=== PATIENT | male | born 1950 | race African-American/Black ===

== ENCOUNTER 2017-07-03 09:57 | Observation (INO) ==
--- NOTE | 2017-07-03 10:06 | Emergency Department Note ---
Disposition Clinical Impression: Chest pain Disposition: Admitted As Inpatient Condition: Fair [facility] Care Provider[facility] - Time of Disposition: 12:10 Chest Pain HPI - General Stated Complaint: CP x3days Time Seen by Provider: 07/03/17 10:01 Vital Signs Reviewed: Yes Nursing Notes Reviewed: Yes - History of Present Illness HPI Narrative: Patient is a 67-year-old male with a past medical history of hypertension, neuropathy, enlarged prostate that presents for left sided chest pain. Patient says chest pain has been constant and have been occurring for the past 3-4 days. He rates the pain as a 5 out of 10 and denies any radiation. He denies anything that can relieve his pain. He says it can occur at rest or with exertion. He says that he has been short of breath with exertion and at rest for the past 3-4 days. He denies any aspirin use in the past 7 days. He has a history of 40 pack years of smoking. He denies any family history of disease. Denies any issues of hypercholesterolemia. - Related Data Home Medications Medication Instructions Recorded Confirmed Albuterol Sulfate [Albuterol 2 puff IH QID PRN 01/03/16 01/03/16 Inhaler] Dextran 70/Hypromellose [Natural 1 drop BOTH EYES QID 01/03/16 01/03/16 Balance Tears Eye Drop] Lisinopril [Zestril] 10 mg PO DAILY 01/03/16 01/03/16 Tamsulosin [Flomax] 0.4 mg PO DAILY 01/03/16 01/03/16 Allergies Allergy/AdvReac Type Severity Reaction Status Date / Time No Known Allergies Allergy Verified 07/03/17 12:04 Review of Systems: As Per HPI Constitutional: Denies: fever, chills, weakness, weight change Cardiovascular: Reports: chest pain (Left sided chest pain) Respiratory: Reports: dyspnea. Denies: cough, wheezes, hemoptysis, stridor, sputum production Gastrointestinal: Denies: abdominal pain, nausea, vomiting, diarrhea, constipation, hematemesis, melena, hematochezia Chest Pain PMH - Past Medical History Medical history: Reports: diabetes, hypertension, kidney stones Surgical history: Reports: no surgical history Psychiatric history: Reports: anxiety, depression - Social History Smoking Status: Current every day smoker Alcohol use: Reports: occasionally Drug use: Reports: cocaine Physical Exam - General Limitations: no limitations General appearance: alert, in no apparent distress - Chest Chest inspection: Present: symmetric chest wall rise, tenderness (Tenderness to palpation) - Respiratory Respiratory exam: Present: normal lung sounds bilaterally - Cardiovascular Cardiovascular exam: Present: regular rate, normal rhythm, normal heart sounds, +S1, +S2. Absent: +S3, +S4 - Abdominal Exam Abdominal exam: Present: soft, Non-Tender, normal bowel sounds. Absent: tenderness, distention, guarding, rebound, rigidity - Extremities Exam Extremities exam: Present: other (Radial pulses symmetrical and intact.) Course Course Narrative: Obtained EKG which showed no acute changes from prior EKG on 01/18/17. No ST elevations noted. No acute ischemic changes noted. Normal sinus rhythm. Patient will be given 325 mg aspirin. Troponin levels will be assessed for ACS. Amylase and lipase will be assessed to r/o pancreatitis. BNP was ordered to r/o CHF. Patient unsure when last stress test was. He has risk factors for ACS including borderline diabetes, history of hypertension, obesity, and the 40-pack -year history of smoking. Last echocardiogram was on 01/03/16 and shows an LVEF of 60-65%. Last nuclear stress test on 01/03/16 was negative for ischemia. Update 07/03/14 1135: Troponin was negative. CXR was normal. Amylase and lipase were within normal limits. BNP was normal. Patient has a HEART score of 5, which is a 12-16.6% risk of adverse cardiac event. Patient will be admitted for further evaluation. Vital Signs Temperature 97.7 F 07/03/17 10:24 Pulse Rate 98 07/03/17 10:24 Respiratory Rate 20 07/03/17 10:24 Blood Pressure 174/105 07/03/17 10:24 O2 Sat by Pulse Oximetry 97 07/03/17 10:24 Temperature 97.7 F 07/03/17 10:24 Pulse Rate 90 07/03/17 10:47 Respiratory Rate 18 07/03/17 10:47 Blood Pressure 127/84 07/03/17 10:47 O2 Sat by Pulse Oximetry 97 07/03/17 10:47 Oxygen Delivery Oxygen Delivery Room Air Chest Pain - Lab Data Result diagrams: 07/03/17 10:18 07/03/17 10:18 Lab Results 04/07/03/17 07/03/17 Range/Units 10:18 10:18 10:18 WBC 6.5 (4.3-11.1) K/mcL RBC 6.07 H (4.19-5.50) M/mcL Hgb 15.9 (12.9-16.9) g/dL Hct 50.0 (37.5-50.1) % MCV 82.4 L (83.0-100.0) fL MCH 26.2 L (28.0-33.3) pg MCHC 31.8 (31.6-35.5) g/dL RDW 14.6 H (11.5-14.5) % Plt Count 227 (140-400) K/mcL MPV 10.0 (9.4-12.4) fL Immature Gran % 0.8 (0-4) % Seg Neutrophils % 47.1 % Lymphocytes % 40.4 % Monocytes % 9.0 % Eosinophils % 1.5 % Basophils % 1.2 % Neutrophils # 3.1 (1.6-8.9) K/mcL Lymphocytes # 2.6 (0.6-4.6) K/mcL Monocytes # 0.6 (0.0-1.3) K/mcL Eosinophils # 0.1 (0.0-0.6) K/mcL Basophils # 0.1 (0.0-0.2) K/mcL PT 11.2 (9.4-12.1) Seconds INR 1.0 APTT 29.8 (26.0-36.0) Seconds Sodium (136-145) mEq/L Potassium (3.5-5.1) mEq/L Chloride (98-107) mEq/L Carbon Dioxide (23-29) mEq/L BUN (8-23) mg/dL Creatinine (0.70-1.30) mg/dL Est GFR ( Amer) (> 60) Est GFR (Non-Af Amer) (> 60) BUN/Creatinine Ratio (6-26) Glucose (70-105) mg/dL Calculated Osmolality (280-300) Calcium (8.6-10.3) mg/dL Troponin I (< 0.04) ng/mL B-Natriuretic Peptide 8 (Less than 100) pg/mL Amylase (29-103) Units/L Lipase (11-82) Units/L 07/03/17 Range/Units 10:18 WBC (4.3-11.1) K/mcL RBC (4.19-5.50) M/mcL Hgb (12.9-16.9) g/dL Hct (37.5-50.1) % MCV (83.0-100.0) fL MCH (28.0-33.3) pg MCHC (31.6-35.5) g/dL RDW (11.5-14.5) % Plt Count (140-400) K/mcL MPV (9.4-12.4) fL Immature Gran % (0-4) % Seg Neutrophils % % Lymphocytes % % Monocytes % % Eosinophils % % Basophils % % Neutrophils # (1.6-8.9) K/mcL Lymphocytes # (0.6-4.6) K/mcL Monocytes # (0.0-1.3) K/mcL Eosinophils # (0.0-0.6) K/mcL Basophils # (0.0-0.2) K/mcL PT (9.4-12.1) Seconds INR APTT (26.0-36.0) Seconds Sodium 140 (136-145) mEq/L Potassium 4.3 (3.5-5.1) mEq/L Chloride 108 H (98-107) mEq/L Carbon Dioxide 23 (23-29) mEq/L BUN 15 (8-23) mg/dL Creatinine 1.16 (0.70-1.30) mg/dL Est GFR ( Amer) > 60 (> 60) Est GFR (Non-Af Amer) > 60 (> 60) BUN/Creatinine Ratio 13 (6-26) Glucose 112 H (70-105) mg/dL Calculated Osmolality 292 (280-300) Calcium 9.5 (8.6-10.3) mg/dL Troponin I < 0.03 (< 0.04) ng/mL B-Natriuretic Peptide (Less than 100) pg/mL Amylase 49 (29-103) Units/L Lipase 43 (11-82) Units/L - EKG Data EKG attestation: Yes I reviewed and interpreted this EKG. EKG shows normal: sinus rhythm Rate: normal Rhythm: NSR Organ/QRS: normal Interpretation: no acute changes, unchanged when compared to prior tracing (date ) (01/18/17) Heart Score - Score History: Moderately Suspicious EKG: Normal Age: Greater than 65 Risk Factors: Equal/Greater than 3 risk factor or history of atherosclerotic disease Troponin: Less than normal limit HEART Score Total: 5
[2017-07-03] MEDS ORDERED: Aspirin 81 MG TAB.CHEW PO ONE (10:28)
--- NOTE | 2017-07-03 10:36 | Emergency Department Note ---
Disposition Clinical Impression: Chest pain Qualifiers: Chest pain type: unspecified Qualified Code(s): R07.9 - Chest pain, unspecified Disposition: Admitted As Inpatient Condition: Fair [facility]: [facility]Primary Care Provider[facility] - Time of Disposition: 12:23 General Adult HPI - General Chief complaint: ED Chest Pain Stated complaint: CP x3days Time Seen by Provider: 07/03/17 10:01 Source: patient, EMS Mode of arrival: EMS Limitations: no limitations Nursing Notes Reviewed: Yes Vital Signs Reviewed: Yes - History of Present Illness HPI Narrative: 67-year-old male comes in complaining of intermittent chest pain. She has been having chest pain off and on for last 3 days. States he had some pain medication changes at the MD and was insurances related to that. He presents now for evaluation. 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[employer] Location: chest Radiation: non-radiation Pain Severity: moderate Pain Scale: 5 Quality: aching Consistency: intermittent Improves with: nothing Worsens with: nothing Associated symptoms: Reports: denies other symptoms Treatments Prior to Arrival: none - Related Data Home Medications Medication Instructions Recorded Confirmed Tamsulosin [Flomax] 0.8 mg PO HS 01/03/16 07/03/17 Cholecalciferol (Vitamin D3) 1,000 unit PO DAILY 07/03/17 07/03/17 [Vitamin D] Lisinopril [Zestril] 20 mg PO DAILY 07/03/17 07/03/17 Melatonin [Melatin] 12 mg PO HS PRN 07/03/17 07/03/17 Nortriptyline [Pamelor] 25 mg PO HS 07/03/17 07/03/17 Ropinirole HCl [Requip] 0.5 mg PO HS 07/03/17 07/03/17 amLODIPine [Norvasc] 5 mg PO DAILY 07/03/17 07/03/17 Allergies Allergy/AdvReac Type Severity Reaction Status Date / Time No Known Allergies Allergy Verified 07/03/17 12:04 All systems ED: reviewed and negative except as stated. Constitutional: Denies: fever, chills, weakness, weight change Eyes: Denies: eye pain, eye discharge, vision change ENT ED: Denies: ear pain, throat pain, dental pain, hearing loss, epistaxis, congestion, dysphagia Cardiovascular: Reports: chest pain. Denies: palpitations, dyspnea on exertion , edema, syncope Respiratory: Denies: cough, dyspnea, wheezes, hemoptysis, stridor Gastrointestinal: Denies: abdominal pain, nausea, vomiting, diarrhea, constipation, hematemesis, melena, hematochezia Genitourinary: Denies: urgency, dysuria, frequency, hematuria Musculoskeletal: Denies: back pain, neck pain, arthralgia, myalgia Integumentary: Denies: rash, abrasion, lesions Neurological: Denies: headache, weakness, numbness, paresthesias, confusion, abnormal gait, vertigo Psychiatric: Denies: anxiety, depression, suicidal thoughts, homicidal thoughts , auditory hallucinations, visual hallucinations Endocrine: Denies: fatigue Hematological/Lymphatic: Denies: easy bleeding, easy bruising Allergic/Immunologic: Denies: facial swelling, urticaria Past Medical History - Past Medical History Medical history: Reports: diabetes, hypertension, kidney stones Surgical history: Reports: no surgical history Psychiatric history: Reports: anxiety, depression - Social History Smoking Status: Current every day smoker Smokeless Tobacco Status: No Alcohol use: Reports: occasionally Drug use: Reports: cocaine Physical Exam - General General appearance: alert, in no apparent distress - Head Head exam: atraumatic, normocephalic, normal inspection - Eye Eye exam: Present: normal appearance, PERRL, EOMI - ENT ENT exam: normal exam, normal oropharynx, mucous membranes moist - Neck Neck exam: Present: normal inspection, full ROM, trachea midline - Chest Chest inspection: Present: normal inspection, symmetric chest wall rise - Respiratory Respiratory exam: Present: normal lung sounds bilaterally - Cardiovascular Cardiovascular exam: Present: regular rate, normal rhythm, normal heart sounds - Abdominal Exam Abdominal exam: Present: soft, Non-Tender. Absent: tenderness, distention, guarding, rebound, rigidity - Extremities Exam Extremities exam: Present: normal inspection, full ROM. Absent: tenderness, pedal edema - Expanded Lower Extremity Exam Neurovascular/Tendon exam: Absent: motor deficit, sensory deficit, tendon deficit Gait: observed and normal - Back Exam Back exam: Present: normal inspection, full ROM. Absent: tenderness - Neurological Exam Neurological exam: Present: alert, oriented X3 - Psychiatric Psychiatric exam: Present: normal affect, normal mood - Skin Skin exam: Present: warm, dry, intact, normal color Course - Reevaluation(s) Reevaluation #1: 67-year-old with no cardiac history comes in with intermittent chest pain. Patient will be admitted for further evaluation and treatment. Time: 12:23 - Consultations Consultation #1: Discussed with , admit Time: 12:27 Vital Signs Temperature 97.7 F 07/03/17 10:24 Pulse Rate 98 07/03/17 10:24 Respiratory Rate 20 07/03/17 10:24 Blood Pressure 174/105 07/03/17 10:24 O2 Sat by Pulse Oximetry 97 07/03/17 10:24 Temperature 97.7 F 07/03/17 10:24 Pulse Rate 90 07/03/17 10:47 Respiratory Rate 18 07/03/17 10:47 Blood Pressure 127/84 07/03/17 10:47 O2 Sat by Pulse Oximetry 97 07/03/17 10:47 Oxygen Delivery Oxygen Delivery Room Air Medical Decision Making - Lab Data Lab results reviewed: Yes I reviewed the patient's lab results. Result diagrams: 07/03/17 10:18 07/03/17 10:18 Lab Results 07/03/17 07/03/17 07/03/17 Range/Units 10:18 10:18 10:18 WBC 6.5 (4.3-11.1) K/mcL RBC 6.07 H (4.19-5.50) M/mcL Hgb 15.9 (12.9-16.9) g/dL Hct 50.0 (37.5-50.1) % MCV 82.4 L (83.0-100.0) fL MCH 26.2 L (28.0-33.3) pg MCHC 31.8 (31.6-35.5) g/dL RDW 14.6 H (11.5-14.5) % Plt Count 227 (140-400) K/mcL MPV 10.0 (9.4-12.4) fL Immature Gran % 0.8 (0-4) % Seg Neutrophils % 47.1 % Lymphocytes % 40.4 % Monocytes % 9.0 % Eosinophils % 1.5 % Basophils % 1.2 % Neutrophils # 3.1 (1.6-8.9) K/mcL Lymphocytes # 2.6 (0.6-4.6) K/mcL Monocytes # 0.6 (0.0-1.3) K/mcL Eosinophils # 0.1 (0.0-0.6) K/mcL Basophils # 0.1 (0.0-0.2) K/mcL PT 11.2 (9.4-12.1) Seconds INR 1.0 APTT 29.8 (26.0-36.0) Seconds Sodium (136-145) mEq/L Potassium (3.5-5.1) mEq/L Chloride (98-107) mEq/L Carbon Dioxide (23-29) mEq/L BUN (8-23) mg/dL Creatinine (0.70-1.30) mg/dL Est GFR ( Amer) (> 60) Est GFR (Non-Af Amer) (> 60) BUN/Creatinine Ratio (6-26) Glucose (70-105) mg/dL Calculated Osmolality (280-300) Calcium (8.6-10.3) mg/dL Troponin I (< 0.04) ng/mL B-Natriuretic Peptide 8 (Less than 100) pg/mL Amylase (29-103) Units/L Lipase (11-82) Units/L 04/20/18 Range/Units 10:18 WBC (4.3-11.1) K/mcL RBC (4.19-5.50) M/mcL Hgb (12.9-16.9) g/dL Hct (37.5-50.1) % MCV (83.0-100.0) fL MCH (28.0-33.3) pg MCHC (31.6-35.5) g/dL RDW (11.5-14.5) % Plt Count (140-400) K/mcL MPV (9.4-12.4) fL Immature Gran % (0-4) % Seg Neutrophils % % Lymphocytes % % Monocytes % % Eosinophils % % Basophils % % Neutrophils # (1.6-8.9) K/mcL Lymphocytes # (0.6-4.6) K/mcL Monocytes # (0.0-1.3) K/mcL Eosinophils # (0.0-0.6) K/mcL Basophils # (0.0-0.2) K/mcL PT (9.4-12.1) Seconds INR APTT (26.0-36.0) Seconds Sodium 140 (136-145) mEq/L Potassium 4.3 (3.5-5.1) mEq/L Chloride 108 H (98-107) mEq/L Carbon Dioxide 23 (23-29) mEq/L BUN 15 (8-23) mg/dL Creatinine 1.16 (0.70-1.30) mg/dL Est GFR ( Amer) > 60 (> 60) Est GFR (Non-Af Amer) > 60 (> 60) BUN/Creatinine Ratio 13 (6-26) Glucose 112 H (70-105) mg/dL Calculated Osmolality 292 (280-300) Calcium 9.5 (8.6-10.3) mg/dL Troponin I < 0.03 (< 0.04) ng/mL B-Natriuretic Peptide (Less than 100) pg/mL Amylase 49 (29-103) Units/L Lipase 43 (11-82) Units/L - Radiology Data Radiology results reviewed: Yes I reviewed the patient's radiology results. Chest X-Ray 07/03/17 10:28 IMPRESSION: No acute cardiopulmonary process identified. D/ / Danyel Isaac MD / Danyel Isaac MD Interpreting Provider: Danyel sIaac MD - EKG Data EKG #1 EKG attestation: Yes I reviewed and interpreted this EKG. EKG shows normal: sinus rhythm Rate: normal Rhythm: NSR [place]/QRS: normal Interpretation: nonspecific ST-T wave changes Attestation Statement - Attestation Attestation: I examined this patient and my medical decision-making was reviewed with the Resident Physician. I agree with the documented findings, disposition and treatment plan as described except to the extent set forth below. I had face-to -face time with the patient. 67-year-old male with multiple risk factors including hypertension, family history, high cholesterol who has had intermittent chest pain. Examination lungs are clear cardiovascular regular rate and rhythm. EKG was obtained that shows no acute findings. We will obtain lab work patient will require admission for further evaluation and treatment.
[2017-07-03 10:42] LABS: Basophils # 0.1 K/mcL (0.0-0.2); Basophils % 1.2 %; Eosinophils # 0.1 K/mcL (0.0-0.6); Eosinophils % 1.5 %; Hemoglobin 15.9 g/dL (12.9-16.9); Immature Granulocytes % 0.8 % (0-4); Lymphocytes # 2.6 K/mcL (0.6-4.6); Lymphocytes % 40.4 %; Mean Corpuscular HGB Conc 31.8 g/dL (31.6-35.5); Mean Corpuscular Hemoglobin 26.2 pg (28.0-33.3); Mean Corpuscular Volume 82.4 fL (83.0-100.0); Monocytes # 0.6 K/mcL (0.0-1.3); Neutrophils # 3.1 K/mcL (1.6-8.9); Platelet Count 227 K/mcL (140-400); Red Blood Count 6.07 M/mcL (4.19-5.50); Red Cell Distribution Width 14.6 % (11.5-14.5); Segmented Neutrophils % 47.1 %
[2017-07-03 10:55] LABS: Prothrombin Time 11.2 Seconds (9.4-12.1)
[2017-07-03 10:57] LABS: Activated Partial Thrombo Time 29.8 Seconds (26.0-36.0)
[2017-07-03 11:07] LABS: Amylase 49 Units/L (29-103); BUN/Creatinine Ratio 13 (6-26); Blood Urea Nitrogen 15 mg/dL (8-23); Calcium 9.5 mg/dL (8.6-10.3); Carbon Dioxide 23 mEq/L (23-29); Chloride 108 mEq/L (98-107); Glucose 112 mg/dL (70-105); Lipase 43 Units/L (11-82); Osmolality,Calculated 292 (280-300); Potassium 4.3 mEq/L (3.5-5.1); Sodium 140 mEq/L (136-145); Troponin I < 0.03 ng/mL (< 0.04); eGFR For African Americans > 60 (> 60); eGFR For Non-African Americans > 60 (> 60)
--- NOTE | 2017-07-03 13:15 | Internal Med History&Physical ---
Date of Encounter: 07/03/17 Time of Encounter: 13:15 Internal Medicine - H&P: HPI Admitted From: Home Plans for Post Hospital Care: Home History of present illness: Mr. Noe is a 67-year-old male with a past medical history of hypertension, prediabetic but not on medication, chronic a smoker for [id number] and quit years ago but now we have started a few cigarette and a day, cocaine abuser in the past but quit 2 years ago, neuropathy, BPH presents for left sided chest pain that has been intermittent for last 3-4 days. Patient had noticed that pain is start when he tried to eat or drink or smoke severity [id number] and most likely dull nagging, nonradiating and not associated with shortness of breath, diaphoresis, nausea, palpitation and easily resolved with rest. Sometimes chest pain can even occur without any aggravating factor. Patient had cardiac workup echocardiogram with EF 60-65% and a stress test in December 2015 because of chest pain but that time he was cocaine abuser and since after that he quit cocaine. Diabetes runs in the family but denies any cardiac disease. In ER initial troponin negative with no acute finding an EKG. Aspirin full dose 324 mg 1 was given in the ER. ER physician called on-call hospitalists to admit for further cardiac workup. During my interview patient had 1/10 chest pain. Patient denies fever, chills, nausea, vomiting, headache, dizziness, shortness of breath, abdominal pain, urinary or bowel complaint. Past Med Surg Social Fam HX - Past Medical History Medical history: diabetes, hypertension, kidney stones Psychiatric history: anxiety, depression - Past Surgical History Surgical History: no surgical history - Social History Smoking Status: Current every day smoker Smokeless Tobacco Status: No Alcohol use: occasionally Drug use: cocaine - Family History Mother Hx Family Cardiac Disorders: Yes (HTN.) Internal Medicine - H&P: Meds Tamsulosin [Flomax] 0.8 mg PO HS 01/03/16 [History] Cholecalciferol (Vitamin D3) [Vitamin D] 1,000 unit PO DAILY 07/03/17 [History] Lisinopril [Zestril] 20 mg PO DAILY 07/03/17 [History] Melatonin [Melatin] 12 mg PO HS PRN 07/03/17 [History] Nortriptyline [Pamelor] 25 mg PO HS 07/03/17 [History] Ropinirole HCl [Requip] 0.5 mg PO HS 07/03/17 [History] amLODIPine [Norvasc] 5 mg PO DAILY 07/03/17 [History] 3 Allergy/AdvReac Type Severity Reaction Status Date / Time No Known Allergies Allergy Verified 07/03/17 12:04 All Systems PM: A 10-system review of systems was performed and is negative for pertinent findings except as documented above in the HPI. - Constitutional Vitals: Temp Pulse Resp BP Pulse Ox 97.7 F 90 18 127/84 97 07/03/17 10:24 07/03/17 10:47 07/03/17 10:47 07/03/17 10:47 07/03/17 10:47 Exam: General appearance: No acute distress, A&O X 3, obese Head exam: Atraumatic Eye exam: EOMI, PERRLA ENT exam: Moist oral mucosa Neck nontender, supple Respiratory exam: Clear to auscultation bilaterally Cardiovascular exam: Regular rate and rhythm, no systolic murmur Abdominal exam: Soft, nontender, nondistended, positive bowel sounds Extremities exam: No calf tenderness, no pedal edema Present: Skin-no rash, warm, dry, intact Neurological exam: Alert, awake, oriented 3, CN II-XII intact, no focal deficits. No facial droop. Normal speech. Normal gait. Romberg sign negative Internal Med - H&P Results - Labs CBC & Chem 7: 07/03/17 10:18 07/03/17 10:18 - Assessment and plan (1) Chest pain Current Visit: Yes Status: Acute Assessment and plan: Atypical chest pain but has multiple risk factors and therefore need cardiac evaluation. Serial troponin, telemetry, echocardiogram, stress test. Will consult playground monitor if needed. Start aspirin, beta hector, statin, oxygen and nitroglycerin when necessary, TYREE inhibitor. Will consider anticoagulation if rising troponin or change in EKG. Qualifiers: Chest pain type: unspecified Qualified Code(s): R07.9 - Chest pain, unspecified (2) Hypertension Current Visit: No Status: Chronic Assessment and plan: Close monitoring. Continue home medicine. Qualifiers: Hypertension type: essential hypertension Qualified Code(s): I10 - Essential (primary) hypertension (3) Prediabetes Current Visit: No Status: Chronic Assessment and plan: Not on any diabetic medication and does not check blood glucose level at home. (4) Tobacco abuse Current Visit: No Status: Chronic Assessment and plan: Tobacco cessation education. (5) DVT prophylaxis Current Visit: Yes Status: Acute Assessment and plan: Lovenox 40 mg subcutaneous - Time Spent With Patient Total time spent is greater than 50% in coordination of care (as documented) at patient's floor/unit and/or counseling patient:
[2017-07-03 13:31] LABS: Amphetamine Screen,Urine Negative ng/mL (Cutoff=1000); Barbiturate Screen,Urine Negative ng/mL (Cutoff=200); Benzodiazepines Screen,Urine Negative ng/mL (Cutoff=200); Cannabinoid Screen,Urine Negative ng/mL (Cutoff = 50); Cocaine Screen,Urine Negative ng/mL (Cutoff= 300); Opiate Screen,Urine Negative ng/mL (Cutoff=300); Phencyclidine Screen,Urine Negative ng/mL (Cutoff=25)
[2017-07-03] MEDS ORDERED: Naloxone 0.4 MG/ML INJ IVP PRN (14:09)
[2017-07-03] MEDS ORDERED: Nitroglycerin 0.4 MG TAB.SUBL SL PRN (14:09)
[2017-07-03] MEDS ORDERED: Melatonin 3 MG TABLET PO PRN (14:20)
--- NOTE | 2017-07-03 17:17 | Electrocardiograph Report ---
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
[2017-07-03] MEDS ORDERED: rOPINIRole 0.25 MG TABLET PO SCH (21:00)
[2017-07-04 03:27] LABS: Basophils # 0.1 K/mcL (0.0-0.2); Basophils % 1.3 %; Eosinophils # 0.2 K/mcL (0.0-0.6); Eosinophils % 3.1 %; Hematocrit 46.7 % (37.5-50.1); Hemoglobin 14.6 g/dL (12.9-16.9); Immature Granulocytes % 0.7 % (0-4); Lymphocytes # 3.3 K/mcL (0.6-4.6); Lymphocytes % 45.8 %; Mean Corpuscular HGB Conc 31.3 g/dL (31.6-35.5); Mean Corpuscular Hemoglobin 25.8 pg (28.0-33.3); Mean Corpuscular Volume 82.5 fL (83.0-100.0); Mean Platelet Volume 10.4 fL (9.4-12.4); Monocytes # 0.7 K/mcL (0.0-1.3); Monocytes % 9.5 %; Neutrophils # 2.9 K/mcL (1.6-8.9); Platelet Count 210 K/mcL (140-400); Red Blood Count 5.66 M/mcL (4.19-5.50); Red Cell Distribution Width 14.5 % (11.5-14.5); Segmented Neutrophils % 39.6 %
[2017-07-04 03:45] LABS: BUN/Creatinine Ratio 13 (6-26); Blood Urea Nitrogen 15 mg/dL (8-23); Calcium 8.9 mg/dL (8.6-10.3); Carbon Dioxide 24 mEq/L (23-29); Chloride 106 mEq/L (98-107); Cholesterol 162 mg/dL (< 200); Glucose 150 mg/dL (70-105); HDL Cholesterol 27 mg/dL (40-59); LDL Cholesterol,Calculated 104 mg/dL (0-99); Osmolality,Calculated 288 (280-300); Potassium 4.1 mEq/L (3.5-5.1); Sodium 137 mEq/L (136-145); Triglycerides 156 mg/dL (< 150); eGFR For African Americans > 60 (> 60); eGFR For Non-African Americans > 60 (> 60)
[2017-07-04] MEDS ORDERED: *HR* Enoxaparin 40 MG/0.4 ML SYRINGE SQ SCH (06:00)
[2017-07-04] MEDS ORDERED: Regadenoson 0.4 MG/5 ML SYRINGE IVP ONE (07:02)
[2017-07-04] MEDS ORDERED: Lisinopril 20 MG TABLET PO SCH (09:00)
[2017-07-04] MEDS ORDERED: amLODIPine 5 MG TABLET PO SCH (09:00)
[2017-07-04] MEDS ORDERED: Cholecalciferol (D-3) 1,000 UNIT TABLET PO SCH (09:00)
[2017-07-04] MEDS ORDERED: Aspirin 81 MG TAB.CHEW PO SCH (09:00)
[2017-07-04 11:31] VITALS: BP 137/85
--- NOTE | 2017-07-04 13:25 | Discharge Summary ---
Orders not resulted at time of discharge: Pending orders 07/03/17 14:09 NM moise perf SPECT multi [NM] Stat Date of Encounter: 07/04/17 Time of Encounter: 13:22 - Discharge Diagnosis (1) Chest pain Priority: Primary Status: Resolved Qualifiers: Chest pain type: unspecified Qualified Code(s): R07.9 - Chest pain, unspecified (2) Hypertension Priority: Secondary Status: Chronic Qualifiers: Hypertension type: essential hypertension Qualified Code(s): I10 - Essential (primary) hypertension (3) Tobacco abuse Priority: Secondary Status: Chronic (4) Prediabetes Priority: Secondary Status: Chronic (5) Hyperlipidemia Priority: Primary Status: Chronic Qualifiers: Hyperlipidemia type: unspecified Qualified Code(s): E78.5 - Hyperlipidemia , unspecified Hospital course: Mr. 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 He was placed in observation status for ACS rule out. His workup included negative serial troponin, EKG without acute ST changes. Echocardiogram with EF 60% and no wall motion abnormalities. Stress test negative for ischemia or infarct. Chest pain resolved at time of discharge. Chest pain possibly secondary to stress or anxiety as patient has a 6-week-old son and he reported increased stressors at home. Chest pain could also be secondary to gastroenterology etiology as he reports a burning sensation that is relieved when he eats. He also reports the chest pain worsened after he eats. He has never had an EGD or colonoscopy. Omeprazole started at discharge and recommend outpatient GI referral for possible EGD. Patient verbalized understanding. Advised return to ER if chest pain/SOB recurs. Discharge discussed with: patient (Seen and examined at the bedside. Patient is new to me, information obtained the chart review and patient report. Denies chest pain, no shortness of breath. He reports chest pain over the last week with associated burning sensation in the stomach. He also reported chest pain was worse after eating at times. Says he has chronic right leg pain and he had some anxieties/stress related to that and he thinks that may have intermittent chest pain as well. He is agreeable to trial omeprazole with outpatient GI follow-up.) - Time Spent with Patient Total time spent providing and/or coordinating discharge services: - Discharge Medications Prescriptions: Atorvastatin [Lipitor] 40 mg PO HS #30 tablet Omeprazole [PriLOSEC] 40 mg PO DAILY #30 cap Home Medications: Tamsulosin [Flomax] 0.8 mg PO HS 01/03/16 [History] Cholecalciferol (Vitamin D3) [Vitamin D3] 1,000 unit PO DAILY 07/03/17 [History] Lisinopril [Zestril] 20 mg PO DAILY 07/03/17 [History] Melatonin [Melatin] 12 mg PO HS PRN 07/03/17 [History] Nortriptyline [Pamelor] 25 mg PO HS 07/03/17 [History] Ropinirole HCl [Requip] 0.5 mg PO HS 07/03/17 [History] amLODIPine [Norvasc] 5 mg PO DAILY 07/03/17 [History] Atorvastatin [Lipitor] 40 mg PO HS #30 tablet 07/04/17 [Rx] Omeprazole [PriLOSEC] 40 mg PO DAILY #30 cap 07/04/17 [Rx] Allergies/Adverse Reactions: 3 Allergy/AdvReac Type Severity Reaction Status Date / Time No Known Allergies Allergy Verified 07/03/17 12:04 Date of admission: 07/03/17 12:31 [facility] care physician: [facility] Consults: 07/03/17 14:16 Consult to Cardiac Rehabilitation-Phase1 [CONS] Routine Comment: Reason for Consult: AMI Call Completed: Yes Consult to Nurse Navigator [CONS] Routine Comment: Discharging clinician: Юлия Estrada Anticipated date of discharge: 07/04/17 - Constitutional Vitals: Temp Pulse Resp BP Pulse Ox 98 F 76 16 137/85 97 07/04/17 11:30 07/04/17 11:30 07/04/17 11:30 07/04/17 11:30 07/04/17 11:30 General appearance: Present: A&O X 3, no acute distress - Head Head exam: Present: atraumatic, normocephalic - Eye Eye exam: Present: PERRL, conjuntiva pink, sclera anicteric Pupils: Present: PERRL - Neck Neck exam general surgery: Present: supple, trachea midline. Absent: lymphadenopathy - Respiratory Respiratory exam: Present: CTAB. Absent: accessory muscle use, rales, rhonchi, wheezes - Cardiovascular Cardiovascular exam: Present: RRR, +S1, +S2. Absent: diastolic murmur, gallop, rubs, systolic murmur - GI/Abdominal GI/Abdominal exam: Present: normal bowel sounds, soft, no peritoneal signs. Absent: distended, tenderness - Extremities Exam Extremities exam: Present: warm, radial pulses palpable and symmetrical. Absent : calf tenderness, cyanotic, pedal edema - Neurological Exam Neurological exam: Present: CN II-XII intact, oriented X3, no focal deficits. Absent: pronater drift, facial droop, speech deficit - Skin Skin exam: Present: dry, intact - Patient Status Disposition: Home, Self-Care Condition: Good Functional capacity at discharge: independent ambulation Overall status at discharge: patient is back to baseline - Discharge Instructions Instructions: Chest Pain (DC), Gastroesophageal Reflux Disease (DC), Omeprazole (By mouth), Atorvastatin (By mouth), Hyperlipidemia (DC) Follow [facility]: [facility] [Primary Care Provider] - Forms: ED Satisfaction Letter Additional Instructions: Please follow-up with your primary care physician for an outpatient GI referral. Your chest pain could be result of a gastrointestinal source and you would benefit from an EGD. - Diet and Activity Activity: increase activity as tolerated Diet: low fat, low cholesterol
== END 2017-07-04 14:30 | disposition home or self-care (01) ==
LOC: EMEROO 09:57 → 3BNU 09:57
PROVIDERS: ADMIT General Practice; ATTEND Family Medicine